=== PATIENT | female | born 1990 | race Caucasian/White ===

== ENCOUNTER → 2018-09-24 | Outpatient (CLI) | payer BC ==
--- NOTE | 2018-09-25 07:24 | US ---
EXAMINATION TYPE: US thyroid st tissue head/neck DATE OF EXAM: 09/24/2018 COMPARISON: NONE CLINICAL HISTORY: E07.9 Disorder of thyroid, unspecified. GLAND SIZE: Right Lobe: 5.1 x 1.4 x 2.0 cm Overall Parenchyma: homogenous Left Lobe: 5.3 x 1.3 x 1.7 cm Overall Parenchyma: homogeneous Isthmus Thickness: 0.2 cm NODULES RIGHT: # of nodules measured on right: 0 LEFT: # of nodules measured on left: 0 ISTHMUS: # of nodules measured in the isthmus: 0 Bilateral neck scanned, no evidence of lymphadenopathy. IMPRESSION: No distinct abnormality appreciated.
== END | disposition home or self-care (01) ==
LOC: RADUSWWP 16:09
PROVIDERS: ATTEND Family Medicine
DX: E07.9 Disorder of thyroid, unspecified (principal)
CPT/HCPCS: 76536

== ENCOUNTER → 2019-02-19 | Outpatient (CLI) | payer BC ==
--- NOTE | 2019-02-19 09:40 | US ---
EXAMINATION TYPE: US abdomen complete DATE OF EXAM: 02/19/2019 COMPARISON: NONE CLINICAL HISTORY: R14.0 ABD Distension, R19.7 Diarrhea. Difficult exam due to overlying bowel gas EXAM MEASUREMENTS: Liver Length: 16.3 cm Gallbladder Wall: 0.2 cm CBD: 0.4 cm Spleen: 10.4 cm Right Kidney: 11.6 x 4.9 x 5.0 cm Left Kidney: 11.0 x 4.3 x 5.3 cm Pancreas: Obscured by bowel gas Liver: Liver heterogeneous Gallbladder: No gallstones Evidence for sonographic Covarrubias's sign: No CBD: wnl distal portion obscured by bowel gas Spleen: wnl Right Kidney: No hydronephrosis or masses seen Left Kidney: No hydronephrosis or masses seen Upper IVC: wnl Abd Aorta: wnl IMPRESSION: 1. Liver is heterogeneous. Correlate for fatty infiltration versus hepatitis.
== END | disposition home or self-care (01) ==
LOC: RADUSWWP 08:49
PROVIDERS: ATTEND Family Medicine
DX: R93.2 Abnormal findings on diagnostic imaging of liver and biliary tract (principal); R14.0 Abdominal distension (gaseous); R10.9 Unspecified abdominal pain; R19.7 Diarrhea, unspecified
CPT/HCPCS: 76700

== ENCOUNTER → 2022-08-16 | Outpatient (CLI) | payer OTHER ==
[2022-08-16 14:26] LABS: HCT 40.8 % (37.2-46.3); HGB 12.9 g/dL (12.0-15.0); MCHC 31.6 g/dL (32.0-37.0); MCV 91.7 fL (80.0-97.0); Mean Platelet Volume 10.3 fL (9.5-12.2); NRBC Per 100 WBC 0 /100 WBCS (0.0-0.0); Platelet Count 312 X 10*3/uL (140-440); RBC 4.45 X 10*6/uL (4.10-5.20); WBC 6.24 X 10*3/uL (4.50-10.00)
== END | disposition home or self-care (01) ==
LOC: LABWHC1 09:19
PROVIDERS: ATTEND Obstetrics & Gynecology Obstetrics
DX: O20.0 Threatened abortion (principal); Z3A.00 Weeks of gestation of pregnancy not specified
CPT/HCPCS: 36415; 84702; 85027; 86850; 86900; 86901